=== PATIENT | female | born 1935 | race African-American/Black ===

== ENCOUNTER 2025-01-09 14:06 | Emergency (ER) | payer OTHER, MEDICAID ==
[~2025-01-09] VITALS: Ht 167.6 cm; Wt 77.0 kg
[2025-01-09 14:11] VITALS: TEMP 36.7; O2SAT 99
[2025-01-09 16:12] LABS: BASOPHILS % 0.6 % (0.0-2.0); EOSINOPHILS % 1.4 % (0.0-5.0); HEMATOCRIT. 30.3 % (36.0-48.0); HEMOGLOBIN. 10.2 g/dL (12.0-16.0); LYMPHOCYTES % 29.3 % (20.0-50.0); MEAN PLATELET VOLUME 9.2 fl (7.4-10.4); MONOCYTES % 12.6 % (2.0-8.0); NEUTROPHILS % 56.1 % (40.0-76.0); PLATELET 162 x1000/uL (130-400); RED BLOOD CELL COUNT 3.43 mill/uL (4.2-5.4); RED CELL DISTRIBUTION WIDTH 13.8 % (11.6-14.6)
[2025-01-09 16:24] LABS: CREATININE 1.4 mg/dL (0.6-1.0)
[2025-01-09 16:25] LABS: UREA NITROGEN BLOOD 16 mg/dL (9-23)
[2025-01-09 16:26] LABS: ASPARTATE AMINOTRANSFERASE 16 IU/L (<34); TROPONIN I HIGH SENSITIVITY 10 ng/L (3.0-34)
[2025-01-09 16:27] LABS: BILIRUBIN DIRECT 0.2 mg/dL (<=3.0); BILIRUBIN TOTAL 0.5 mg/dL (0.1-1.0); PROTEIN TOTAL 6.5 g/dL (6.0-8.3)
[2025-01-09 20:58] VITALS: BP 109/56; PULSE 52; RESP 12; O2SAT 100
== END 2025-01-09 21:07 | disposition short-term general hospital (02) ==
LOC: ER 14:33 → CMPBEDREQ 01-10 07:17
DX: R51.9 Headache, unspecified (principal); R53.1 Weakness; R42 Dizziness and giddiness; F03.90 Unspecified dementia, unspecified severity, without behavioral disturbance, psychotic disturbance, mood disturbance, and anxiety; I10 Essential (primary) hypertension; R06.02 Shortness of breath; I67.82 Cerebral ischemia
CPT/HCPCS: 36415; 71045; 80048; 80076; 83735; 83880; 84484; 85025; 93005; 99285; A4606